=== PATIENT | female | born 1960 | race African-American/Black ===

== ENCOUNTER 2017-10-04 13:51 | Inpatient (IN) ==
[2017-10-04] MEDS ORDERED: ONDANSETRON 4 MG/2 ML VIAL IV PRN (16:54)
[2017-10-04] MEDS ORDERED: BISACODYL 5 MG TABLET PO PRN (16:54)
[2017-10-04] MEDS ORDERED: GLUCAGON 1 MG VIAL IM PRN (16:54)
[2017-10-04] MEDS ORDERED: DEXTROSE 50% 25 GM/50 ML VIAL IV PRN (16:54)
[2017-10-04] MEDS ORDERED: HYDROmorphone 2 MG/1 ML VIAL IV PRN (16:54)
[2017-10-04] MEDS ORDERED: ACETAMINOPHEN 325 MG TABLET PO PRN (16:54)
[2017-10-04 17:16] LABS: Basophils % 0.3 % (0.0-0.8); Eosinophils # 0.1 10*3/uL (0.0-0.87); Eosinophils % 0.6 % (0.00-10.9); Hematocrit 38.5 VOL% (35.7-47.0); Hemoglobin 12.5 GM/DL (12.0-16.0); Immature Granulocytes % 0.4 %; Immature Granulocytes Absolute 0.06 #; Lymphocytes # 2.7 10*3/uL (1.4-4.0); Lymphocytes % 19.2 % (21.3-54.2); Mean Corpuscular HGB Conc 32.5 GM/DL (32-36); Mean Corpuscular Hemoglobin 26 PG (27-34); Mean Corpuscular Volume 80.9 FL (87-102); Mean Platelet Volume 10.1 FL (9.6-12.0); Monocytes # 0.9 10*3/uL (0.11-0.8); Monocytes % 6.1 % (1.7-12.7); Neutrophils # 10.3 10*3/uL (1.4-7.4); Neutrophils % 73.4 % (38.7-73.9); Platelet Count 279 T/CUMM (130-400); Red Blood Count 4.76 MC/CUMM (3.8-5.5); Red Cell Distribution Width 15.4 % (9.3-17.3)
[2017-10-04 17:27] LABS: PT Patient Result 10.1 SECS
[2017-10-04] MEDS ORDERED: CLINDAMYCIN INJ 50 ML IV ONE (17:28)
[2017-10-04] MEDS: CLINDAMYCIN INJ 600 MG in PREMIX 1 EACH IV SCH ×2 (17:30→23:11)
[2017-10-04 17:48] LABS: Alanine Aminotransferase 19 U/L (13-56); Albumin 3.1 G/DL (3.4-5.0); Alkaline Phosphatase 86 U/L (45-117); Aspartate Amino Transferase 11 U/L (0-37); Bilirubin,Total < 0.39 MG/DL (0.2-1.0); Blood Urea Nitrogen 21 MG/DL (7-18); Calcium 9.3 MG/DL (8.5-10.1); Glucose 64 MG/DL (74-106); Magnesium 2.3 MG/DL (1.8-2.4); Osmolality,Calculated 279.4 MOS/KG (273-304); Potassium 3.9 MMOL/L (3.5-5.1); Sodium 140 MMOL/L (136-145); Total Protein 7.9 G/DL (6.4-8.3)
[2017-10-04] MEDS: SODIUM CHLORIDE 0.45% 1,000 ML IV SCH (18:15)
[2017-10-04] MEDS: SULFAMETHOX/TRIMETHOPRIM 800-160 MG TABLET PO SCH ×2 (18:41→21:42)
[2017-10-04] MEDS: DOCUSATE SODIUM 100 MG CAPSULE PO SCH (21:42)
[2017-10-04] MEDS: INSULIN GLARGINE 100 UNIT/ML SUBCUT SCH (21:42)
[2017-10-04] MEDS: LOVASTATIN 20 MG TABLET PO SCH (21:42)
[2017-10-04] MEDS: INSULIN REGULAR 100 UNIT/ML SUBCUT SCH (21:43)
[2017-10-05] MEDS: SODIUM CHLORIDE 0.45% 1,000 ML IV SCH ×3 (03:06→17:52)
[2017-10-05] MEDS: CLINDAMYCIN INJ 600 MG in PREMIX 1 EACH IV SCH ×4 (05:15→23:22)
[2017-10-05] MEDS: INSULIN REGULAR 100 UNIT/ML SUBCUT SCH ×4 (06:40→21:51)
[2017-10-05] MEDS: LISINOPRIL 5 MG TABLET PO SCH ×2 (07:14→09:00)
[2017-10-05] MEDS ORDERED: LIDOCAINE 1%/EPI INJ 20 ML VIAL ONE (08:07)
[2017-10-05] MEDS ORDERED: DEXTROSE 50% 25 GM/50 ML VIAL IV PRN (09:10)
[2017-10-05] MEDS ORDERED: ONDANSETRON 4 MG/2 ML VIAL IV PRN ×2 (09:10→09:23)
[2017-10-05] MEDS ORDERED: GLUCAGON 1 MG VIAL IM PRN (09:10)
[2017-10-05] MEDS ORDERED: PROPOFOL 200 MG/20 ML VIAL IV ONE (09:18)
[2017-10-05] MEDS ORDERED: MIDAZOLAM 2 MG/2 ML VIAL ONE (09:19)
[2017-10-05] MEDS ORDERED: fentaNYL 100 MCG/2 ML VIAL ONE (09:19)
[2017-10-05] MEDS ORDERED: ONDANSETRON 4 MG/2 ML VIAL ONE ×2 (09:19→09:29)
[2017-10-05] MEDS ORDERED: SEVOFLURANE 1 UNIT/15 MINUTE INH ONE (09:19)
[2017-10-05] MEDS ORDERED: HYDROmorphone 2 MG/1 ML VIAL ONE (09:29)
[2017-10-05] MEDS: HYDROmorphone 2 MG/1 ML VIAL IV PRN ×2 (09:30→09:35)
[2017-10-05] MEDS ORDERED: LACTATED RINGERS 1,000 ML IV SCH (09:30)
[2017-10-05] MEDS: INSULIN GLARGINE 100 UNIT/ML SUBCUT SCH ×2 (11:52→21:51)
[2017-10-05] MEDS: PIOGLITAZONE 15 MG TABLET PO SCH (11:55)
[2017-10-05] MEDS: DOCUSATE SODIUM 100 MG CAPSULE PO SCH ×2 (11:56→21:51)
[2017-10-05] MEDS: PANTOPRAZOLE 40 MG TABLET PO SCH (11:56)
[2017-10-05] MEDS: sitaGLIPtin 100 MG TABLET PO SCH (11:56)
[2017-10-05] MEDS: SULFAMETHOX/TRIMETHOPRIM 800-160 MG TABLET PO SCH ×2 (11:56→21:51)
[2017-10-05] MEDS: LOVASTATIN 20 MG TABLET PO SCH (21:51)
[2017-10-06] MEDS: SODIUM CHLORIDE 0.45% 1,000 ML IV SCH ×4 (02:06→17:00)
[2017-10-06] MEDS: CLINDAMYCIN INJ 600 MG in PREMIX 1 EACH IV SCH ×4 (04:54→23:13)
[2017-10-06 06:29] LABS: Basophils % 0.3 % (0.0-0.8); Eosinophils # 0.1 10*3/uL (0.0-0.87); Eosinophils % 0.6 % (0.00-10.9); Hematocrit 36.9 VOL% (35.7-47.0); Hemoglobin 11.8 GM/DL (12.0-16.0); Immature Granulocytes % 0.5 %; Immature Granulocytes Absolute 0.05 #; Lymphocytes # 2.6 10*3/uL (1.4-4.0); Lymphocytes % 25.4 % (21.3-54.2); Mean Corpuscular Hemoglobin 26 PG (27-34); Mean Corpuscular Volume 81.5 FL (87-102); Monocytes # 0.8 10*3/uL (0.11-0.8); Monocytes % 7.5 % (1.7-12.7); Neutrophils # 6.8 10*3/uL (1.4-7.4); Neutrophils % 65.7 % (38.7-73.9); Platelet Count 293 T/CUMM (130-400); Red Blood Count 4.53 MC/CUMM (3.8-5.5); Red Cell Distribution Width 15.5 % (9.3-17.3); White Blood Count 10.3 T/CUMM (4-12)
[2017-10-06 07:04] LABS: Calcium 8.5 MG/DL (8.5-10.1); Osmolality,Calculated 282.1 MOS/KG (273-304); Potassium 3.7 MMOL/L (3.5-5.1)
[2017-10-06] MEDS: INSULIN REGULAR 100 UNIT/ML SUBCUT SCH ×4 (08:01→22:03)
[2017-10-06] MEDS: sitaGLIPtin 100 MG TABLET PO SCH (09:11)
[2017-10-06] MEDS: SULFAMETHOX/TRIMETHOPRIM 800-160 MG TABLET PO SCH ×2 (09:11→22:02)
[2017-10-06] MEDS: PIOGLITAZONE 15 MG TABLET PO SCH (09:11)
[2017-10-06] MEDS: DOCUSATE SODIUM 100 MG CAPSULE PO SCH ×2 (09:11→22:02)
[2017-10-06] MEDS: INSULIN GLARGINE 100 UNIT/ML SUBCUT SCH ×2 (09:12→22:03)
[2017-10-06] MEDS: ENOXAPARIN 40 MG/0.4 ML SYRINGE SUBCUT SCH (09:12)
[2017-10-06] MEDS: PANTOPRAZOLE 40 MG TABLET PO SCH (09:13)
[2017-10-06] MEDS: LISINOPRIL 5 MG TABLET PO SCH (09:14)
[2017-10-06] MEDS: HYDROmorphone 2 MG/1 ML VIAL IV PRN (11:30)
[2017-10-06] MEDS: SODIUM HYPOCHLORITE 0.25% IRRIG 473 ML BOTTLE TOP SCH (12:20)
[2017-10-06] MEDS: LOVASTATIN 20 MG TABLET PO SCH (22:02)
[2017-10-06] MEDS: ALUMINUM/MAGNES/SIMETH MAX STR 30 ML UDCUP PO PRN (22:03)
[2017-10-07] MEDS: SODIUM CHLORIDE 0.45% 1,000 ML IV SCH ×4 (00:57→21:03)
[2017-10-07] MEDS: HYDROmorphone 2 MG/1 ML VIAL IV PRN (00:58)
[2017-10-07] MEDS: CLINDAMYCIN INJ 600 MG in PREMIX 1 EACH IV SCH ×4 (05:11→23:25)
[2017-10-07 05:47] LABS: Basophils % 0.3 % (0.0-0.8); Eosinophils # 0.1 10*3/uL (0.0-0.87); Eosinophils % 1.2 % (0.00-10.9); Hematocrit 33.8 VOL% (35.7-47.0); Hemoglobin 10.9 GM/DL (12.0-16.0); Immature Granulocytes % 0.5 %; Immature Granulocytes Absolute 0.04 #; Lymphocytes % 25.8 % (21.3-54.2); Mean Corpuscular HGB Conc 32.2 GM/DL (32-36); Mean Corpuscular Hemoglobin 26 PG (27-34); Mean Corpuscular Volume 81.1 FL (87-102); Mean Platelet Volume 10.1 FL (9.6-12.0); Monocytes # 0.5 10*3/uL (0.11-0.8); Neutrophils % 65.2 % (38.7-73.9); Platelet Count 267 T/CUMM (130-400); Red Blood Count 4.17 MC/CUMM (3.8-5.5); Red Cell Distribution Width 15.6 % (9.3-17.3); White Blood Count 7.7 T/CUMM (4-12)
[2017-10-07 06:15] LABS: Calcium 8.6 MG/DL (8.5-10.1); Magnesium 2.4 MG/DL (1.8-2.4); Osmolality,Calculated 283.1 MOS/KG (273-304); Potassium 4.2 MMOL/L (3.5-5.1)
[2017-10-07] MEDS: INSULIN REGULAR 100 UNIT/ML SUBCUT SCH ×5 (07:18→20:21)
[2017-10-07] MEDS: sitaGLIPtin 100 MG TABLET PO SCH (08:48)
[2017-10-07] MEDS: SODIUM HYPOCHLORITE 0.25% IRRIG 473 ML BOTTLE TOP SCH (08:48)
[2017-10-07] MEDS: INSULIN GLARGINE 100 UNIT/ML SUBCUT SCH ×2 (08:48→21:26)
[2017-10-07] MEDS: PIOGLITAZONE 15 MG TABLET PO SCH (08:53)
[2017-10-07] MEDS: SULFAMETHOX/TRIMETHOPRIM 800-160 MG TABLET PO SCH ×2 (08:53→21:26)
[2017-10-07] MEDS: DOCUSATE SODIUM 100 MG CAPSULE PO SCH ×2 (08:53→21:26)
[2017-10-07] MEDS: ENOXAPARIN 40 MG/0.4 ML SYRINGE SUBCUT SCH (08:54)
[2017-10-07] MEDS: LISINOPRIL 5 MG TABLET PO SCH (08:54)
[2017-10-07] MEDS: PANTOPRAZOLE 40 MG TABLET PO SCH (08:54)
[2017-10-07] MEDS: ALUMINUM/MAGNES/SIMETH MAX STR 30 ML UDCUP PO PRN (12:34)
[2017-10-07] MEDS: LOVASTATIN 20 MG TABLET PO SCH (21:26)
[2017-10-07] MEDS: FERROUS SULFATE 325 MG TABLET PO SCH (21:29)
[2017-10-08] MEDS: SODIUM CHLORIDE 0.45% 1,000 ML IV SCH ×2 (04:57→09:39)
[2017-10-08] MEDS: CLINDAMYCIN INJ 600 MG in PREMIX 1 EACH IV SCH ×4 (04:57→22:51)
[2017-10-08 06:39] LABS: Basophils % 0.3 % (0.0-0.8); Eosinophils # 0.1 10*3/uL (0.0-0.87); Eosinophils % 1.6 % (0.00-10.9); Hematocrit 34.5 VOL% (35.7-47.0); Hemoglobin 11.2 GM/DL (12.0-16.0); Immature Granulocytes % 0.7 %; Immature Granulocytes Absolute 0.05 #; Lymphocytes # 1.8 10*3/uL (1.4-4.0); Lymphocytes % 24.1 % (21.3-54.2); Mean Corpuscular HGB Conc 32.5 GM/DL (32-36); Mean Corpuscular Hemoglobin 26 PG (27-34); Mean Corpuscular Volume 80.2 FL (87-102); Monocytes # 0.5 10*3/uL (0.11-0.8); Monocytes % 6.6 % (1.7-12.7); Neutrophils # 4.9 10*3/uL (1.4-7.4); Neutrophils % 66.7 % (38.7-73.9); Platelet Count 292 T/CUMM (130-400); Red Cell Distribution Width 15.5 % (9.3-17.3); White Blood Count 7.4 T/CUMM (4-12)
[2017-10-08 07:06] LABS: Calcium 8.8 MG/DL (8.5-10.1); Osmolality,Calculated 281.3 MOS/KG (273-304); Potassium 4.3 MMOL/L (3.5-5.1)
[2017-10-08] MEDS: INSULIN REGULAR 100 UNIT/ML SUBCUT SCH ×4 (08:26→20:23)
[2017-10-08] MEDS: INSULIN GLARGINE 100 UNIT/ML SUBCUT SCH ×2 (09:40→20:23)
[2017-10-08] MEDS: sitaGLIPtin 100 MG TABLET PO SCH (09:40)
[2017-10-08] MEDS: ENOXAPARIN 40 MG/0.4 ML SYRINGE SUBCUT SCH (09:40)
[2017-10-08] MEDS: PIOGLITAZONE 15 MG TABLET PO SCH (09:41)
[2017-10-08] MEDS: SODIUM HYPOCHLORITE 0.25% IRRIG 473 ML BOTTLE TOP SCH (09:41)
[2017-10-08] MEDS: SULFAMETHOX/TRIMETHOPRIM 800-160 MG TABLET PO SCH (09:41)
[2017-10-08] MEDS: DOCUSATE SODIUM 100 MG CAPSULE PO SCH ×2 (09:41→20:23)
[2017-10-08] MEDS: LISINOPRIL 5 MG TABLET PO SCH (09:41)
[2017-10-08] MEDS: FERROUS SULFATE 325 MG TABLET PO SCH ×2 (09:41→20:23)
[2017-10-08] MEDS: PANTOPRAZOLE 40 MG TABLET PO SCH (09:41)
[2017-10-08] MEDS: LOVASTATIN 20 MG TABLET PO SCH (20:23)
[2017-10-09] MEDS: CLINDAMYCIN INJ 600 MG in PREMIX 1 EACH IV SCH ×2 (04:41→12:11)
[2017-10-09] MEDS: INSULIN REGULAR 100 UNIT/ML SUBCUT SCH ×2 (08:32→12:10)
[2017-10-09] MEDS: DOCUSATE SODIUM 100 MG CAPSULE PO SCH (09:24)
[2017-10-09] MEDS: FERROUS SULFATE 325 MG TABLET PO SCH (09:24)
[2017-10-09] MEDS: PIOGLITAZONE 15 MG TABLET PO SCH (09:24)
[2017-10-09] MEDS: sitaGLIPtin 100 MG TABLET PO SCH (09:24)
[2017-10-09] MEDS: ENOXAPARIN 40 MG/0.4 ML SYRINGE SUBCUT SCH (09:25)
[2017-10-09] MEDS: INSULIN GLARGINE 100 UNIT/ML SUBCUT SCH (09:25)
[2017-10-09] MEDS: LISINOPRIL 5 MG TABLET PO SCH ×2 (09:26→12:11)
[2017-10-09] MEDS: PANTOPRAZOLE 40 MG TABLET PO SCH (09:26)
[2017-10-09] MEDS: SODIUM HYPOCHLORITE 0.25% IRRIG 473 ML BOTTLE TOP SCH (11:00)
[2017-10-09 11:47] VITALS: BP 140/70
== END 2017-10-09 13:25 | disposition home health service (06) | DRG 571 ==
LOC: N.ED 13:51 → N.EDINP 16:54 → N.3E 17:55
PROVIDERS: ADMIT Specialist; ATTEND Specialist

== ENCOUNTER 2020-02-21 05:29 | Inpatient (IN) ==
[2020-02-13 12:23] LABS: Basophils % 0.3 % (0.0-0.8); Eosinophils # 0.2 10*3/uL (0.0-0.87); Eosinophils % 2.1 % (0.00-10.9); Hematocrit 39.7 VOL% (35.7-47.0); Hemoglobin 12.5 GM/DL (12.0-16.0); Immature Granulocytes % 0.3 %; Immature Granulocytes Absolute 0.02 #; Lymphocytes # 1.8 10*3/uL (1.4-4.0); Lymphocytes % 22.8 % (21.3-54.2); Mean Corpuscular HGB Conc 31.5 GM/DL (32-36); Mean Corpuscular Volume 79.1 FL (87-102); Mean Platelet Volume 10.2 FL (9.6-12.0); Monocytes % 6.6 % (1.7-12.7); Neutrophils % 67.9 % (38.7-73.9); Platelet Count 269 T/CUMM (130-400); Red Blood Count 5.02 MC/CUMM (3.8-5.5); Red Cell Distribution Width 18.1 % (9.3-17.3); White Blood Count 7.8 T/CUMM (4-12)
[2020-02-13 12:27] LABS: Apearance,Urine CLEAR (Clear); Bacteria,Urine Moderate /HPF (Few); Bilirubin,Urine Negative (Negative); Blood, Urine Moderate mg/dL (Negative); Glucose,Urine (UA) Negative (Negative); Ketones,Urine Negative (Negative); Nitrite,Urine Negative (Negative); Protein,Urine Negative; RBC,Urine 3 /HPF (0-4); Squamous Epithelial Cell,Urine Occasional /HPF (0-10); Urine Color Yellow (Yellow); Urine Urobilinogen < 2.0 EU/DL (0.2-1.0); WBC,Urine 9 /HPF (0-6)
[2020-02-13 12:36] LABS: PT Patient Result 10.4 SECS (9.8-11.9); Partial Thromboplastin Time 32.2 SECS (23.9-33.8)
[2020-02-13 12:51] LABS: Calcium 9.3 MG/DL (8.5-10.1); Osmolality,Calculated 280.3 MOS/KG (273-304)
[~2020-02-21 05:29] MED LIST: LACTATED RINGERS 1,000 ML IV SCH
[2020-02-21] MEDS ORDERED: ceFAZolin 1,000 MG VIAL ONE ×2 (05:46→07:58)
[2020-02-21] MEDS ORDERED: FAMOTIDINE 20 MG TABLET PO ONE (06:26)
[2020-02-21] MEDS ORDERED: INDIGO CARMINE 5 ML AMP ONE (06:28)
[2020-02-21] MEDS ORDERED: LACTATED RINGERS 1,000 ML IV SCH ×2 (06:30→11:00)
[2020-02-21] MEDS ORDERED: ceFAZolin 1,000 MG in SYRINGE 1 EACH IV ONE (06:30)
[2020-02-21] MEDS ORDERED: FAMOTIDINE 20 MG TABLET ONE (06:31)
[2020-02-21] MEDS ORDERED: LIDOCAINE 1%/EPI INJ 20 ML VIAL ONE (07:35)
[2020-02-21] MEDS ORDERED: ESTRADIOL 0.01% VAG CREAM 42.5 GM TUBE VAG ONE (07:47)
[2020-02-21] MEDS ORDERED: oxyCODONE/ACETAMINOPHEN 5-325 MG TABLET PO PRN (10:48)
[2020-02-21] MEDS ORDERED: IBUPROFEN 800 MG TABLET PO PRN (10:48)
[2020-02-21] MEDS ORDERED: ONDANSETRON 4 MG/2 ML VIAL IV PRN ×2 (10:48→11:03)
[2020-02-21] MEDS ORDERED: ACETAMINOPHEN 325 MG TABLET PO PRN (10:48)
[2020-02-21] MEDS ORDERED: BISACODYL 10 MG SUPP RECTAL PRN (10:48)
[2020-02-21] MEDS ORDERED: BENZOCAINE/MENTHOL LOZENGE 18/BOX PO PRN (10:48)
[2020-02-21] MEDS ORDERED: HYDROmorphone 2 MG/1 ML VIAL ONE (10:51)
[2020-02-21] MEDS: HYDROmorphone 2 MG/1 ML VIAL IV PRN ×4 (10:55→11:28)
[2020-02-21 11:01] LABS: Apearance,Urine CLEAR (Clear); Bacteria,Urine Occasional /HPF (Few); Bilirubin,Urine Negative (Negative); Blood, Urine Negative (Negative); Glucose,Urine (UA) Negative (Negative); Ketones,Urine Negative (Negative); Mucus,Urine Occasional /LPF (Occasional); Nitrite,Urine Negative (Negative); Protein,Urine Negative; RBC,Urine 1 /HPF (0-4); Squamous Epithelial Cell,Urine Occasional /HPF (0-10); Urine Color Yellow (Yellow); Urine Specific Gravity 1.012 (1.001-1.035); Urine Urobilinogen < 2.0 EU/DL (0.2-1.0); WBC,Urine 1 /HPF (0-6)
[2020-02-21] MEDS ORDERED: propofoL 200 MG/20 ML VIAL IV ONE (11:05)
[2020-02-21] MEDS ORDERED: DESFLURANE 1 UNIT/15 MINUTE INH ONE (11:05)
[2020-02-21] MEDS ORDERED: LIDOCAINE 2% 5 ML VIAL ONE (11:05)
[2020-02-21] MEDS ORDERED: ROCURONIUM 100 MG/10 ML VIAL IV ONE (11:06)
[2020-02-21] MEDS ORDERED: ACETAMINOPHEN 1,000 MG/100 ML VIAL IV ONE (11:06)
[2020-02-21] MEDS ORDERED: MIDAZOLAM 2 MG/2 ML VIAL ONE (11:06)
[2020-02-21] MEDS ORDERED: GLYCOPYRROLATE 0.4 MG/2 ML VIAL ONE (11:06)
[2020-02-21] MEDS ORDERED: LACTATED RINGERS 2,000 ML IV ONE (11:06)
[2020-02-21] MEDS ORDERED: SUCCINYLCHOLINE 200 MG/10 ML VIAL ONE (11:06)
[2020-02-21] MEDS ORDERED: fentaNYL 100 MCG/2 ML VIAL ONE (11:06)
[2020-02-21] MEDS ORDERED: NEOSTIGMINE 10 MG/10 ML VIAL ONE (11:06)
[2020-02-21] MEDS ORDERED: KETOROLAC 30 MG/1 ML VIAL ONE (11:06)
[2020-02-21] MEDS ORDERED: MEPERIDINE 25 MG/1 ML VIAL IV PRN (13:07)
[2020-02-21] MEDS: KETOROLAC 30 MG/1 ML VIAL IV PRN ×2 (15:07→20:15)
[2020-02-21] MEDS ORDERED: SODIUM CHLORIDE 0.9% 50 ML IV ONE (16:57)
[2020-02-21] MEDS: ceFAZolin 1,000 MG in SYRINGE 1 EACH IV SCH ×2 (17:03→23:58)
[2020-02-21] MEDS ORDERED: lisinopriL 10 MG TABLET PO STA (23:38)
[2020-02-22 06:27] LABS: Basophils % 0.2 % (0.0-0.8); Eosinophils % 0.3 % (0.00-10.9); Hematocrit 32.1 VOL% (35.7-47.0); Hemoglobin 9.6 GM/DL (12.0-16.0); Immature Granulocytes % 0.4 %; Immature Granulocytes Absolute 0.05 #; Lymphocytes # 2.2 10*3/uL (1.4-4.0); Mean Corpuscular HGB Conc 29.9 GM/DL (32-36); Mean Corpuscular Volume 81.9 FL (87-102); Mean Platelet Volume 10.9 FL (9.6-12.0); Monocytes % 8.9 % (1.7-12.7); Neutrophils % 72.2 % (38.7-73.9); Platelet Count 211 T/CUMM (130-400); Red Blood Count 3.92 MC/CUMM (3.8-5.5); Red Cell Distribution Width 17.6 % (9.3-17.3); White Blood Count 12.1 T/CUMM (4-12)
[2020-02-22] MEDS: ENOXAPARIN 40 MG/0.4 ML SYRINGE SUBCUT SCH (09:00)
[2020-02-22] MEDS: DOCUSATE SODIUM 100 MG CAPSULE PO PRN ×2 (09:00→19:38)
[2020-02-22] MEDS: MAGNESIUM HYDROXIDE SUSP 30 ML UDCUP PO PRN ×2 (09:00→19:38)
[2020-02-22] MEDS: sitaGLIPtin 100 MG TABLET PO SCH (09:38)
[2020-02-22] MEDS: INSULIN GLARGINE 100 UNIT/ML SUBCUT SCH (09:39)
[2020-02-22] MEDS: CYANOCOBALAMIN 500 MCG TABLET PO SCH (09:41)
[2020-02-22] MEDS: SIMETHICONE CHEW 80 MG TABLET PO PRN ×2 (10:10→19:38)
[2020-02-22] MEDS: lisinopriL 10 MG TABLET PO SCH (13:49)
[2020-02-22] MEDS: KETOROLAC 30 MG/1 ML VIAL IV PRN (19:38)
[2020-02-22] MEDS ORDERED: oxyCODONE/ACETAMINOPHEN 5-325 MG TABLET PO PRN (22:29)
[2020-02-22] MEDS: oxyCODONE/ACETAMINOPHEN 5-325 MG TABLET PO PRN (23:27)
[2020-02-23] MEDS ORDERED: GLUCAGON 1 MG VIAL IM PRN (04:28)
[2020-02-23] MEDS ORDERED: DEXTROSE 50% 25 GM/50 ML VIAL IV PRN (04:28)
[2020-02-23] MEDS: oxyCODONE/ACETAMINOPHEN 5-325 MG TABLET PO PRN (06:28)
[2020-02-23] MEDS ORDERED: LEVOTHYROXINE 25 MCG TABLET PO SCH ×2 (06:30→07:30)
[2020-02-23 07:37] VITALS: BP 163/85
[2020-02-23] MEDS: ENOXAPARIN 40 MG/0.4 ML SYRINGE SUBCUT SCH (09:23)
[2020-02-23] MEDS: sitaGLIPtin 100 MG TABLET PO SCH (09:24)
[2020-02-23] MEDS: DOCUSATE SODIUM 100 MG CAPSULE PO PRN (09:24)
[2020-02-23] MEDS: CYANOCOBALAMIN 500 MCG TABLET PO SCH (09:24)
[2020-02-23] MEDS: lisinopriL 10 MG TABLET PO SCH (09:24)
[2020-02-23] MEDS: INSULIN GLARGINE 100 UNIT/ML SUBCUT SCH (09:26)
== END 2020-02-23 12:30 | disposition home or self-care (01) | DRG 742 ==
LOC: N.OR 05:29 → N.SDSINP 05:30 → N.OB 12:13
PROVIDERS: ADMIT Specialist; ATTEND Specialist

== ENCOUNTER 2022-08-29 16:53 | Inpatient (IN) ==
[2022-08-29 17:57] LABS: Basophils % 0.3 % (0.0-0.8); Eosinophils # 0.1 10*3/uL (0.0-0.87); Eosinophils % 1.7 % (0.00-10.9); Hematocrit 45.7 VOL% (35.7-47.0); Hemoglobin 14.7 GM/DL (12.0-16.0); Immature Granulocytes % 0.8 %; Immature Granulocytes Absolute 0.06 #; Lymphocytes # 1.7 10*3/uL (1.4-4.0); Lymphocytes % 22.9 % (21.3-54.2); Mean Corpuscular HGB Conc 32.2 GM/DL (32-36); Mean Corpuscular Volume 84.3 FL (87-102); Mean Platelet Volume 11.4 FL (9.6-12.0); Monocytes # 0.4 10*3/uL (0.11-0.8); Monocytes % 6.1 % (1.7-12.7); Neutrophils % 68.2 % (38.7-73.9); Platelet Count 190 T/CUMM (130-400); Red Blood Count 5.42 MC/CUMM (3.8-5.5); Red Cell Distribution Width 16.8 % (9.3-17.3); White Blood Count 7.3 T/CUMM (4-12)
[2022-08-29 18:09] LABS: PT Patient Result 10.8 SECS (10.1-12.1); Partial Thromboplastin Time 28.3 SECS (23.7-32.9)
[2022-08-29 18:15] LABS: Alanine Aminotransferase 23 U/L (13-56); Albumin 3.3 G/DL (3.4-5.0); Alkaline Phosphatase 126 U/L (45-117); Aspartate Amino Transferase 13 U/L (0-37); Bilirubin,Total < 0.39 MG/DL (0.20-1.00); Blood Urea Nitrogen 17 MG/DL (7-18); Calcium 9.1 MG/DL (8.5-10.1); Carbon Dioxide 28 MMOL/L (21-32); Chloride 102 MMOL/L (98-107); Osmolality,Calculated 304.7 MOS/KG (273-304); Potassium 3.9 MMOL/L (3.5-5.1); Sodium 138 MMOL/L (136-145); Total Protein 8.5 G/DL (6.4-8.2)
[2022-08-29 18:24] LABS: Glucose 605 MG/DL (74-106)
[2022-08-29] MEDS ORDERED: INSULIN REGULAR 100 UNIT/ML IV STA (18:29)
[2022-08-29] MEDS ORDERED: SODIUM CHLORIDE 0.9% 1,000 ML IV STA (18:29)
[2022-08-29] MEDS ORDERED: LABETALOL 20 MG/4 ML SYRINGE IV STA (18:29)
[2022-08-29] MEDS ORDERED: hydrALAZINE 20 MG/1 ML VIAL IV STA ×2 (19:00→19:46)
[2022-08-29] MEDS ORDERED: MORPHINE 2 MG/1 ML SYRINGE IV STA (19:00)
[2022-08-29] MEDS ORDERED: ONDANSETRON 4 MG/2 ML VIAL IV ONE (19:00)
[2022-08-29] MEDS ORDERED: ONDANSETRON 4 MG/2 ML VIAL IV PRN (19:11)
[2022-08-29] MEDS ORDERED: GLUCAGON 1 MG VIAL IM PRN (19:11)
[2022-08-29 19:13] LABS: Bacteria,Urine Occasional /HPF (Few); Bilirubin,Urine Negative (Negative); Blood, Urine Negative (Negative); Glucose,Urine (UA) >=500 mg/dL (Negative); Ketones,Urine 5 mg/dL (Negative); Nitrite,Urine Negative (Negative); Protein,Urine 30 mg/dL (Negative); RBC,Urine <1 /HPF (0-4); Squamous Epithelial Cell,Urine Occasional /HPF (0-10); Urine Appearance CLEAR (Clear); Urine Color Colorless (Yellow); Urine Specific Gravity 1.018 (1.001-1.035); Urine Urobilinogen < 2.0 eU/dL (<2.0)
[2022-08-29] MEDS ORDERED: DEXTROSE 10% 250 ML BAG IV PRN (19:19)
[2022-08-29] MEDS: SODIUM CHLORIDE 0.9% 1,000 ML IV SCH (21:22)
[2022-08-30] MEDS: INSULIN REGULAR 100 UNIT/ML SUBCUT SCH ×5 (00:13→23:58)
[2022-08-30 04:42] LABS: Basophils % 0.1 % (0.0-0.8); Eosinophils # 0.1 10*3/uL (0.0-0.87); Eosinophils % 0.6 % (0.00-10.9); Hematocrit 39.5 VOL% (35.7-47.0); Hemoglobin 12.8 GM/DL (12.0-16.0); Immature Granulocytes % 0.4 %; Immature Granulocytes Absolute 0.03 #; Lymphocytes # 2.5 10*3/uL (1.4-4.0); Lymphocytes % 30.1 % (21.3-54.2); Mean Corpuscular HGB Conc 32.4 GM/DL (32-36); Mean Corpuscular Volume 85.3 FL (87-102); Mean Platelet Volume 11.8 FL (9.6-12.0); Monocytes # 0.6 10*3/uL (0.11-0.8); Neutrophils % 61.8 % (38.7-73.9); Platelet Count 187 T/CUMM (130-400); Red Blood Count 4.63 MC/CUMM (3.8-5.5); Red Cell Distribution Width 16.9 % (9.3-17.3); White Blood Count 8.4 T/CUMM (4-12)
[2022-08-30 05:07] LABS: Alanine Aminotransferase 17 U/L (13-56); Albumin 2.6 G/DL (3.4-5.0); Alkaline Phosphatase 96 U/L (45-117); Aspartate Amino Transferase 11 U/L (0-37); Bilirubin,Total < 0.39 MG/DL (0.20-1.00); Blood Urea Nitrogen 16 MG/DL (7-18); Calcium 8.7 MG/DL (8.5-10.1); Carbon Dioxide 27 MMOL/L (21-32); Chloride 110 MMOL/L (98-107); Glucose 225 MG/DL (74-106); Osmolality,Calculated 293.8 MOS/KG (273-304); Potassium 3.2 MMOL/L (3.5-5.1); Sodium 144 MMOL/L (136-145); Total Protein 6.9 G/DL (6.4-8.2)
[2022-08-30] MEDS: SODIUM CHLORIDE 0.9% 1,000 ML IV SCH ×3 (06:21→22:16)
[2022-08-30] MEDS ORDERED: metFORMIN 500 MG TABLET PO SCH (08:00)
[2022-08-30] MEDS: PANTOPRAZOLE 40 MG TABLET PO SCH (09:00)
[2022-08-30] MEDS: lisinopriL 10 MG TABLET PO SCH (09:00)
[2022-08-30] MEDS: hydroCHLOROthiazide 25 MG TABLET PO SCH (09:01)
[2022-08-30] MEDS: ACETAMINOPHEN 325 MG TABLET PO PRN (09:01)
[2022-08-30] MEDS: SERTRALINE 25 MG TABLET PO SCH (20:29)
[2022-08-31 04:21] LABS: Basophils % 0.4 % (0.0-0.8); Eosinophils # 0.1 10*3/uL (0.0-0.87); Eosinophils % 1.4 % (0.00-10.9); Hematocrit 41.2 VOL% (35.7-47.0); Hemoglobin 13.1 GM/DL (12.0-16.0); Immature Granulocytes % 0.4 %; Immature Granulocytes Absolute 0.03 #; Lymphocytes # 2.6 10*3/uL (1.4-4.0); Lymphocytes % 35.4 % (21.3-54.2); Mean Corpuscular HGB Conc 31.8 GM/DL (32-36); Mean Corpuscular Volume 85.5 FL (87-102); Mean Platelet Volume 11.5 FL (9.6-12.0); Monocytes # 0.5 10*3/uL (0.11-0.8); Monocytes % 7.5 % (1.7-12.7); Neutrophils % 54.9 % (38.7-73.9); Platelet Count 170 T/CUMM (130-400); Red Blood Count 4.82 MC/CUMM (3.8-5.5); White Blood Count 7.2 T/CUMM (4-12)
[2022-08-31 04:51] LABS: Albumin 2.4 G/DL (3.4-5.0); Bilirubin,Total 0.4 MG/DL (0.20-1.00); Calcium 8.6 MG/DL (8.5-10.1); Osmolality,Calculated 290.7 MOS/KG (273-304); Potassium 3.2 MMOL/L (3.5-5.1); Total Protein 6.3 G/DL (6.4-8.2)
[2022-08-31 04:59] LABS: Free T4 (Free Thyroxine) 0.65 NG/DL (0.76-1.46); Thyroid Stimulating Hormone 13.3 uIU/ml (0.358-3.74)
[2022-08-31] MEDS: SODIUM CHLORIDE 0.9% 1,000 ML IV SCH (06:20)
[2022-08-31] MEDS: INSULIN REGULAR 100 UNIT/ML SUBCUT SCH ×4 (06:36→23:46)
[2022-08-31] MEDS ORDERED: MAGNESIUM SULF RIDER 4 GM/100 ML PREMIX IV PRN (08:25)
[2022-08-31] MEDS ORDERED: MAGNESIUM SULF RIDER 2 GM/50 ML PREMIX IV PRN (08:25)
[2022-08-31] MEDS ORDERED: POTASSIUM CHLORIDE RIDER 10 MEQ/100 ML PREMIX IV PRN (08:25)
[2022-08-31] MEDS: hydroCHLOROthiazide 25 MG TABLET PO SCH (09:18)
[2022-08-31] MEDS: INSULIN GLARGINE 100 UNIT/ML SUBCUT SCH (09:18)
[2022-08-31] MEDS: lisinopriL 10 MG TABLET PO SCH (09:19)
[2022-08-31] MEDS: POTASSIUM CHLORIDE 20 MEQ TABLET PO PRN ×4 (09:19→14:54)
[2022-08-31] MEDS: PANTOPRAZOLE 40 MG TABLET PO SCH (09:19)
[2022-08-31] MEDS: SERTRALINE 25 MG TABLET PO SCH (21:06)
[2022-08-31] MEDS: hydrALAZINE 20 MG/1 ML VIAL IV PRN (21:07)
[2022-08-31] MEDS: ACETAMINOPHEN 325 MG TABLET PO PRN (22:04)
[2022-09-01] MEDS: traMADol 50 MG TABLET PO PRN ×2 (01:07→09:37)
[2022-09-01] MEDS ORDERED: hydrALAZINE 20 MG/1 ML VIAL IV ONE (01:15)
[2022-09-01 04:53] LABS: Basophils % 0.4 % (0.0-0.8); Eosinophils # 0.1 10*3/uL (0.0-0.87); Eosinophils % 1.5 % (0.00-10.9); Hematocrit 44.4 VOL% (35.7-47.0); Hemoglobin 14.3 GM/DL (12.0-16.0); Immature Granulocytes % 0.5 %; Immature Granulocytes Absolute 0.04 #; Lymphocytes # 2.1 10*3/uL (1.4-4.0); Lymphocytes % 26.2 % (21.3-54.2); Mean Corpuscular HGB Conc 32.2 GM/DL (32-36); Mean Corpuscular Volume 84.4 FL (87-102); Mean Platelet Volume 11.5 FL (9.6-12.0); Monocytes # 0.6 10*3/uL (0.11-0.8); Neutrophils % 64.4 % (38.7-73.9); Platelet Count 207 T/CUMM (130-400); Red Blood Count 5.26 MC/CUMM (3.8-5.5); Red Cell Distribution Width 17.2 % (9.3-17.3); White Blood Count 8.1 T/CUMM (4-12)
[2022-09-01 05:19] LABS: Calcium 9.5 MG/DL (8.5-10.1)
[2022-09-01] MEDS: INSULIN REGULAR 100 UNIT/ML SUBCUT SCH ×4 (05:46→21:32)
[2022-09-01] MEDS: SODIUM CHLORIDE 0.9% 1,000 ML IV SCH ×3 (06:21→22:36)
[2022-09-01] MEDS ORDERED: LEVOTHYROXINE 100 MCG TABLET PO SCH (06:30)
[2022-09-01] MEDS: lisinopriL 10 MG TABLET PO SCH (09:35)
[2022-09-01] MEDS: hydroCHLOROthiazide 25 MG TABLET PO SCH (09:35)
[2022-09-01] MEDS: PANTOPRAZOLE 40 MG TABLET PO SCH (09:35)
[2022-09-01] MEDS: INSULIN GLARGINE 100 UNIT/ML SUBCUT SCH (09:37)
[2022-09-01] MEDS ORDERED: sitaGLIPtin 100 MG TABLET PO SCH (13:00)
[2022-09-01] MEDS: methylPREDNISolone SOD SUC 40 MG/1 ML VIAL IV SCH (13:25)
[2022-09-01] MEDS: cefTRIAXone 1,000 MG in SODIUM CHLORIDE 0.9% 100 ML IV SCH (13:26)
[2022-09-01] MEDS: hydrALAZINE 20 MG/1 ML VIAL IV PRN (15:56)
[2022-09-01] MEDS ORDERED: cloNIDine 0.1 MG TABLET PO ONE (19:48)
[2022-09-01] MEDS: SERTRALINE 25 MG TABLET PO SCH (21:32)
[2022-09-01] MEDS: sitaGLIPtin 100 MG TABLET PO SCH (21:32)
[2022-09-01] MEDS: cloNIDine 0.1 MG TABLET PO SCH (21:32)
[2022-09-02] MEDS: methylPREDNISolone SOD SUC 40 MG/1 ML VIAL IV SCH ×2 (01:15→13:39)
[2022-09-02 05:59] LABS: Calcium 8.7 MG/DL (8.5-10.1); Osmolality,Calculated 289.7 MOS/KG (273-304); Potassium 3.6 MMOL/L (3.5-5.1)
[2022-09-02] MEDS: LEVOTHYROXINE 125 MCG TABLET PO SCH (05:59)
[2022-09-02] MEDS: INSULIN REGULAR 100 UNIT/ML SUBCUT SCH ×4 (09:15→21:30)
[2022-09-02] MEDS: lisinopriL 10 MG TABLET PO SCH (09:29)
[2022-09-02] MEDS: PANTOPRAZOLE 40 MG TABLET PO SCH (09:30)
[2022-09-02] MEDS: hydroCHLOROthiazide 25 MG TABLET PO SCH (09:30)
[2022-09-02] MEDS: INSULIN GLARGINE 100 UNIT/ML SUBCUT SCH (09:32)
[2022-09-02] MEDS: cloNIDine 0.1 MG TABLET PO SCH ×2 (09:33→21:30)
[2022-09-02] MEDS: cefTRIAXone 1,000 MG in SODIUM CHLORIDE 0.9% 100 ML IV SCH (13:39)
[2022-09-02] MEDS: SODIUM CHLORIDE 0.9% 1,000 ML IV SCH (13:40)
[2022-09-02] MEDS: CLOPIDOGREL 75 MG TABLET PO SCH (16:16)
[2022-09-02] MEDS: sitaGLIPtin 100 MG TABLET PO SCH (21:30)
[2022-09-02] MEDS: SERTRALINE 25 MG TABLET PO SCH (21:30)
[2022-09-03] MEDS: methylPREDNISolone SOD SUC 40 MG/1 ML VIAL IV SCH ×2 (01:32→13:26)
[2022-09-03 05:29] LABS: Calcium 8.8 MG/DL (8.5-10.1); Osmolality,Calculated 287.8 MOS/KG (273-304); Potassium 3.7 MMOL/L (3.5-5.1)
[2022-09-03] MEDS: LEVOTHYROXINE 125 MCG TABLET PO SCH (05:52)
[2022-09-03] MEDS: INSULIN REGULAR 100 UNIT/ML SUBCUT SCH ×4 (08:06→21:20)
[2022-09-03] MEDS: ASPIRIN 325 MG TABLET PO SCH (08:09)
[2022-09-03] MEDS: CLOPIDOGREL 75 MG TABLET PO SCH (08:10)
[2022-09-03] MEDS: hydroCHLOROthiazide 25 MG TABLET PO SCH (08:10)
[2022-09-03] MEDS: lisinopriL 10 MG TABLET PO SCH (08:10)
[2022-09-03] MEDS: PANTOPRAZOLE 40 MG TABLET PO SCH (08:10)
[2022-09-03] MEDS: SODIUM CHLORIDE 0.9% 1,000 ML IV SCH ×2 (08:12→09:20)
[2022-09-03] MEDS: INSULIN GLARGINE 100 UNIT/ML SUBCUT SCH (08:46)
[2022-09-03] MEDS: cefTRIAXone 1,000 MG in SODIUM CHLORIDE 0.9% 100 ML IV SCH (13:24)
[2022-09-03] MEDS: traMADol 50 MG TABLET PO PRN (15:46)
[2022-09-03] MEDS: SERTRALINE 25 MG TABLET PO SCH (21:19)
[2022-09-03] MEDS: cloNIDine 0.1 MG TABLET PO SCH (21:19)
[2022-09-03] MEDS: sitaGLIPtin 100 MG TABLET PO SCH (21:19)
[2022-09-04] MEDS: methylPREDNISolone SOD SUC 40 MG/1 ML VIAL IV SCH ×2 (00:55→12:59)
[2022-09-04] MEDS: LEVOTHYROXINE 125 MCG TABLET PO SCH (06:25)
[2022-09-04] MEDS: SODIUM CHLORIDE 0.9% 1,000 ML IV SCH (06:32)
[2022-09-04] MEDS: INSULIN REGULAR 100 UNIT/ML SUBCUT SCH ×3 (07:54→17:37)
[2022-09-04] MEDS: ASPIRIN 325 MG TABLET PO SCH (08:44)
[2022-09-04] MEDS: hydroCHLOROthiazide 25 MG TABLET PO SCH (08:44)
[2022-09-04] MEDS: lisinopriL 10 MG TABLET PO SCH (08:45)
[2022-09-04] MEDS: CLOPIDOGREL 75 MG TABLET PO SCH (08:45)
[2022-09-04] MEDS: PANTOPRAZOLE 40 MG TABLET PO SCH (08:45)
[2022-09-04] MEDS: INSULIN GLARGINE 100 UNIT/ML SUBCUT SCH (09:27)
[2022-09-04] MEDS: cefTRIAXone 1,000 MG in SODIUM CHLORIDE 0.9% 100 ML IV SCH (12:59)
[2022-09-04 16:06] VITALS: BP 179/80
== END 2022-09-04 17:17 | disposition home health service (06) | DRG 65 ==
LOC: N.ED 16:53 → N.EDINP 19:06 → INTOOBSV 19:06 → N.TELEN 20:19
PROVIDERS: ADMIT Internal Medicine; ATTEND Internal Medicine